=== PATIENT | male | born 1965 | race Two or more races ===

== ENCOUNTER 2023-11-23 18:08 | Emergency (ER) | payer OTHER ==
[~2023-11-23] VITALS: Ht 175.3 cm; Wt 72.6 kg
[2023-11-23 18:18] VITALS: TEMP 97.8
[2023-11-23] MEDS ORDERED: methylPREDNISolone SOD SUCC 125 MG/2ML VIAL ONE (19:29)
[2023-11-23] MEDS ORDERED: ALBUTEROL FS 2.5 MG/3 ML VIAL.NEB ONE (19:32)
[2023-11-23] MEDS ORDERED: IPRATROPIUM NEB FS 0.5 MG/2.5 ML AMPUL.NEB ONE (19:32)
[2023-11-23] MEDS: methylPREDNISolone SOD SUCC 125 MG/2ML VIAL IM ONE (19:35)
[2023-11-23 20:17] VITALS: O2SAT 97
[2023-11-23] MEDS: IPRATROPIUM NEB FS 0.5 MG/2.5 ML AMPUL.NEB NEB ONE (20:17)
[2023-11-23] MEDS: ALBUTEROL FS 2.5 MG/3 ML VIAL.NEB NEB ONE (20:17)
[2023-11-23 20:32] VITALS: O2SAT 100
[2023-11-23 21:42] VITALS: BP 118/82; O2SAT 100
== END 2023-11-23 21:44 | disposition left against medical advice (07) ==
LOC: ER 18:18
DX: R05.9 Cough, unspecified (principal); J45.909 Unspecified asthma, uncomplicated; Z98.890 Other specified postprocedural states; Z60.2 Problems related to living alone
CPT/HCPCS: 99285; 96372; 71045; 94640; J2930

== ENCOUNTER 2024-07-08 15:33 | Emergency (ER) | payer OTHER ==
[~2024-07-08] VITALS: Ht 180.3 cm; Wt 81.6 kg
[2024-07-08] MEDS: methylPREDNISolone SOD SUCC 125 MG/2ML VIAL IV ONE (17:00)
[2024-07-08] MEDS ORDERED: methylPREDNISolone SOD SUCC 125 MG/2ML VIAL ONE (17:13)
[2024-07-08 17:33] LABS: BASOPHILS % (AUTO) 0.3 % (0.0-2.0); EOSINOPHILS # (AUTO) 0.1 K/uL (0.0-0.7); EOSINOPHILS % (AUTO) 0.7 % (0.0-6.0); HEMATOCRIT 47 % (39-51); HEMOGLOBIN 15.9 g/dL (13.5-17.5); LYMPHOCYTES # (AUTO) 1.2 K/uL (0.8-4.8); LYMPHOCYTES % (AUTO) 12.3 % (20.0-44.0); MEAN CORPUSCULAR HEMOGLOBIN 32 PG (26.0-33.0); MEAN CORPUSCULAR HGB CONC 34 g/dl (31.0-36.0); MEAN CORPUSCULAR VOLUME 95 fL (80-96); MONOCYTES # (AUTO) 0.8 K/uL (0.1-1.30); MONOCYTES % (AUTO) 8.6 % (2.0-12.0); NEUTROPHILS # (AUTO) 7.4 K/uL (1.8-8.9); NEUTROPHILS % (AUTO) 78.1 % (43.0-81.0); PLATELET COUNT (AUTO) 220 K/uL (150-450); RED BLOOD CELL COUNT(AUTO) 4.95 MIL/uL (4.5-6.0); RED CELL DISTRIBUTION WIDTH 12.5 % (11.5-15.0); WHITE BLOOD COUNT (AUTO) 9.4 K/uL (4.3-11.0)
[2024-07-08] MEDS: ALBUTEROL FS 2.5 MG/3 ML VIAL.NEB NEB ONE (17:44)
[2024-07-08] MEDS: IPRATROPIUM NEB FS 0.5 MG/2.5 ML AMPUL.NEB NEB ONE (17:44)
[2024-07-08] MEDS ORDERED: ALBUTEROL FS 2.5 MG/0.5 ML VIAL.NEB ONE (17:46)
[2024-07-08] MEDS ORDERED: IPRATROPIUM NEB FS 0.5 MG/2.5 ML AMPUL.NEB ONE (17:46)
[2024-07-08 17:56] LABS: CALCIUM, SERUM 9.5 mg/dL (8.5-10.1); CARBON DIOXIDE 28 mmol/L (21-32); CHLORIDE 106 mmol/L (98-107); CREATININE 1.3 mg/dL (0.6-1.3); GLUCOSE 109 mg/dL (74-106); SODIUM SERUM 140 mmol/L (136-145); UREA NITROGEN, BLOOD 12 mg/dL (7-18)
[2024-07-08 18:03] LABS: ALANINE AMINOTRANSFERASE 31 U/L (12-78); ALBUMIN 3.7 g/dL (3.4-5.0); ALKALINE PHOSPHATASE 70 U/L (46-116); ASPARTATE AMINOTRANSFERASE 18 U/L (15-37); BILIRUBIN,DIRECT 0.2 mg/dL (0.0-0.2); BILIRUBIN,TOTAL 0.8 mg/dL (0.2-1.0); TOTAL PROTEIN, SERUM 7.9 g/dL (6.4-8.2)
[2024-07-08] MEDS ORDERED: PRED50TA PO (18:41)
[2024-07-08] MEDS ORDERED: PROM118S5 PO (18:41)
[2024-07-08 19:26] VITALS: BP 121/73; TEMP 98; O2SAT 98
[2024-07-10 08:37] LABS: ABG OXYGEN SATURATION 98.2 % (94.0-98.0); ABG PO2 107.7 mmHg (83.0-108.0); ABG TOTAL HEMOGLOBIN 16.7 G/dL (13.5-17.5); COHb 0.3 % (0.5-1.5); MetHb 0.3 % (0.0-1.5); O2Hb 97.6 % (94.0-97.0); PEEP,BG 12 cm H2O; SITE, ABG LEFT RADIAL; VT, ABG 400 mL
== END 2024-07-08 19:26 | disposition home or self-care (01) ==
LOC: ER 15:34
DX: J45.901 Unspecified asthma with (acute) exacerbation (principal); G25.0 Essential tremor; Z20.822 Contact with and (suspected) exposure to COVID-19; Z98.890 Other specified postprocedural states
CPT/HCPCS: 99285; 96374; 71045; 87426; 93005; 82803; 87804 ×2; 85025; 80048; 80076; 85378; 36415; 87420; 84484; 36600; 94640; J2919

== ENCOUNTER 2024-07-12 23:20 | Emergency (ER) | payer OTHER ==
[~2024-07-12] VITALS: Ht 180.3 cm; Wt 76.2 kg
[~2024-07-12 23:20] MED LIST: PRED50TA PO; PROM118S5 PO
[2024-07-12 23:27] VITALS: TEMP 97.9
[2024-07-12] MEDS: ALBUTEROL FS 2.5 MG/3 ML VIAL.NEB CONTNEB ONE (23:36)
[2024-07-12] MEDS ORDERED: ALBUTEROL FS 2.5 MG/3 ML VIAL.NEB ONE (23:41)
[2024-07-12 23:55] LABS: BASOPHILS % (AUTO) 0.1 % (0.0-2.0); EOSINOPHILS % (AUTO) 0.1 % (0.0-6.0); HEMATOCRIT 48 % (39-51); LYMPHOCYTES # (AUTO) 0.5 K/uL (0.8-4.8); LYMPHOCYTES % (AUTO) 4.2 % (20.0-44.0); MEAN CORPUSCULAR HEMOGLOBIN 32 PG (26.0-33.0); MEAN CORPUSCULAR HGB CONC 34 g/dl (31.0-36.0); MEAN CORPUSCULAR VOLUME 96 fL (80-96); MONOCYTES # (AUTO) 0.3 K/uL (0.1-1.30); MONOCYTES % (AUTO) 2.1 % (2.0-12.0); NEUTROPHILS # (AUTO) 11.5 K/uL (1.8-8.9); NEUTROPHILS % (AUTO) 93.5 % (43.0-81.0); PLATELET COUNT (AUTO) 242 K/uL (150-450); RED BLOOD CELL COUNT(AUTO) 4.95 MIL/uL (4.5-6.0); WHITE BLOOD COUNT (AUTO) 12.3 K/uL (4.3-11.0)
[2024-07-12] MEDS ORDERED: methylPREDNISolone SOD SUCC 125 MG/2ML VIAL ONE (23:56)
[2024-07-12] MEDS ORDERED: Magnesium 1GM/D5W 100ML PREMIX 100 ML IV ONE (23:56)
[2024-07-13 00:06] LABS: CALCIUM, SERUM 9.2 mg/dL (8.5-10.1); CREATININE 1.3 mg/dL (0.6-1.3); POTASSIUM 4.3 mmol/L (3.5-5.1)
[2024-07-13] MEDS: Magnesium 1GM/D5W 100ML PREMIX 100 ML IV SCH (00:07)
[2024-07-13 00:08] VITALS: O2SAT 100
[2024-07-13] MEDS: methylPREDNISolone SOD SUCC 125 MG/2ML VIAL IV ONE (00:08)
[2024-07-13 00:17] LABS: ABG BASE EXCESS -1.1 mmol/L (-2.0-3.0); ABG OXYGEN SATURATION 97.3 % (94.0-98.0); ABG PCO2 24.6 mmHg (35.0-48.0); ABG PO2 81.1 mmHg (83.0-108.0); ABG TOTAL HEMOGLOBIN 16.5 G/dL (13.5-17.5); COHb 0.2 % (0.5-1.5); MetHb 0.4 % (0.0-1.5); O2Hb 96.7 % (94.0-97.0)
[2024-07-13 00:18] LABS: ALBUMIN 3.5 g/dL (3.4-5.0); BILIRUBIN,TOTAL 2.2 mg/dL (0.2-1.0); TOTAL PROTEIN, SERUM 7.4 g/dL (6.4-8.2)
[2024-07-13] MEDS ORDERED: PRED50TA PO (00:24)
[2024-07-13 01:08] VITALS: O2SAT 100
[2024-07-13 01:25] VITALS: BP 146/92; O2SAT 100
== END 2024-07-13 02:08 | disposition left against medical advice (07) ==
LOC: ER 23:21
DX: J45.901 Unspecified asthma with (acute) exacerbation (principal); R06.02 Shortness of breath; Z79.52 Long term (current) use of systemic steroids; Z60.2 Problems related to living alone; Z20.822 Contact with and (suspected) exposure to COVID-19
CPT/HCPCS: 99285; 71045; 87426; 93005; 85025; 36415; 80053; 84484; 83880; 96365; 96375; 82803; 36600; 94644; J2919; J3475

== ENCOUNTER → 2024-08-06 | Emergency (ER) | payer OTHER ==
[~2024-08-06] VITALS: Ht 180.3 cm; Wt 83.5 kg
[~2024-08-06] MED LIST changes: +ACET-2030 PO; +ALBU2.5V38 INH; +ALBUTEROL FS 2.5 MG/3 ML VIAL.NEB ONE; +ASPI-992 PO; +BUDE10.2 IH; +CT SWABBABLE VALVE TRANS SET 1 EA INFUS.SET MC ONE; +IOHEXOL-350 100 ML VIAL IV ONE; +IPRATROPIUM NEB FS 0.5 MG/2.5 ML AMPUL.NEB ONE; +IV NS 0.9% 250 ML IV ONE; +MONT10TA22 PO; +PRED10TA PO; +PRIM50TA27 PO; +PROP10TA68 PO; +TOPI25TA49 PO; +methylPREDNISolone SOD SUCC 125 MG/2ML VIAL ONE
[2024-08-06 17:14] LABS: BASOPHILS % (AUTO) 0.3 % (0.0-2.0); EOSINOPHILS % (AUTO) 0.4 % (0.0-6.0); HEMATOCRIT 48 % (39-51); HEMOGLOBIN 16.2 g/dL (13.5-17.5); LYMPHOCYTES # (AUTO) 0.4 K/uL (0.8-4.8); LYMPHOCYTES % (AUTO) 4.2 % (20.0-44.0); MEAN CORPUSCULAR HEMOGLOBIN 33 PG (26.0-33.0); MEAN CORPUSCULAR HGB CONC 34 g/dl (31.0-36.0); MEAN CORPUSCULAR VOLUME 96 fL (80-96); MONOCYTES # (AUTO) 0.2 K/uL (0.1-1.30); MONOCYTES % (AUTO) 2.1 % (2.0-12.0); NEUTROPHILS # (AUTO) 9.3 K/uL (1.8-8.9); PLATELET COUNT (AUTO) 177 K/uL (150-450); RED BLOOD CELL COUNT(AUTO) 4.97 MIL/uL (4.5-6.0); RED CELL DISTRIBUTION WIDTH 13.1 % (11.5-15.0)
[2024-08-06 17:22] LABS: CALCIUM, SERUM 9.3 mg/dL (8.5-10.1); CARBON DIOXIDE 25 mmol/L (21-32); CHLORIDE 104 mmol/L (98-107); CREATININE 1.3 mg/dL (0.6-1.3); GLUCOSE 117 mg/dL (74-106); POTASSIUM 4.5 mmol/L (3.5-5.1); SODIUM SERUM 137 mmol/L (136-145); UREA NITROGEN, BLOOD 17 mg/dL (7-18)
[2024-08-06 17:35] LABS: NT-PRO BNP 324 pg/mL (0-125)
[2024-08-06 17:43] LABS: MAGNESIUM 2.4 mg/dL (1.8-2.4); PHOSPHORUS 2.9 mg/dL (2.5-4.9)
[2024-08-06] MEDS: methylPREDNISolone SOD SUCC 125 MG/2ML VIAL IV ONE (18:09)
[2024-08-06] MEDS: Magnesium 1GM/D5W 100ML PREMIX 100 ML IV SCH (18:09)
[2024-08-06 19:10] VITALS: O2SAT 99
[2024-08-06] MEDS: IPRATROPIUM NEB FS 0.5 MG/2.5 ML AMPUL.NEB NEB ONE (19:10)
[2024-08-06] MEDS: ALBUTEROL FS 2.5 MG/3 ML VIAL.NEB NEB ONE (19:10)
[2024-08-06 20:11] VITALS: O2SAT 99
[2024-08-06 21:35] VITALS: BP 110/62; TEMP 98.1; O2SAT 99
== END ==
LOC: ER 16:15
DX: J45.901 Unspecified asthma with (acute) exacerbation (principal); R00.8 Other abnormalities of heart beat; R06.02 Shortness of breath; R05.9 Cough, unspecified; Z79.51 Long term (current) use of inhaled steroids; Z79.899 Other long term (current) drug therapy; Z60.2 Problems related to living alone
CPT/HCPCS: 99285; 96365; 71275; 71045; 96375; 93005 ×3; 85025; 80048; 83735; 84100; 36415; 84484 ×2; 83880; 94644; J2919; J7050; J3475; Q9967

== ENCOUNTER 2024-08-31 13:25 | Emergency (ER) | payer OTHER ==
[~2024-08-31] VITALS: Ht 180.3 cm; Wt 83.5 kg
[~2024-08-31 13:25] MED LIST changes: -ALBUTEROL FS 2.5 MG/3 ML VIAL.NEB ONE; -ASPI-992 PO; -CT SWABBABLE VALVE TRANS SET 1 EA INFUS.SET MC ONE; -IOHEXOL-350 100 ML VIAL IV ONE; -IPRATROPIUM NEB FS 0.5 MG/2.5 ML AMPUL.NEB ONE; -IV NS 0.9% 250 ML IV ONE; -PRED50TA PO; -PROM118S5 PO; -methylPREDNISolone SOD SUCC 125 MG/2ML VIAL ONE
[2024-08-31 14:23] LABS: BASOPHILS % (AUTO) 0.2 % (0.0-2.0); EOSINOPHILS # (AUTO) 0.1 K/uL (0.0-0.7); EOSINOPHILS % (AUTO) 1.2 % (0.0-6.0); HEMATOCRIT 44 % (39-51); HEMOGLOBIN 15.3 g/dL (13.5-17.5); LYMPHOCYTES % (AUTO) 9.5 % (20.0-44.0); MEAN CORPUSCULAR HEMOGLOBIN 33 PG (26.0-33.0); MEAN CORPUSCULAR HGB CONC 35 g/dl (31.0-36.0); MEAN CORPUSCULAR VOLUME 95 fL (80-96); MONOCYTES # (AUTO) 0.7 K/uL (0.1-1.30); NEUTROPHILS # (AUTO) 8.3 K/uL (1.8-8.9); NEUTROPHILS % (AUTO) 82.1 % (43.0-81.0); PLATELET COUNT (AUTO) 182 K/uL (150-450); RED BLOOD CELL COUNT(AUTO) 4.65 MIL/uL (4.5-6.0); RED CELL DISTRIBUTION WIDTH 13.4 % (11.5-15.0); WHITE BLOOD COUNT (AUTO) 10.1 K/uL (4.3-11.0)
[2024-08-31 14:36] LABS: CALCIUM, SERUM 9.5 mg/dL (8.5-10.1); CARBON DIOXIDE 29 mmol/L (21-32); CHLORIDE 107 mmol/L (98-107); CREATININE 1.2 mg/dL (0.6-1.3); GLUCOSE 98 mg/dL (74-106); POTASSIUM 3.9 mmol/L (3.5-5.1); SODIUM SERUM 142 mmol/L (136-145); UREA NITROGEN, BLOOD 12 mg/dL (7-18)
[2024-08-31] MEDS ORDERED: ASPI-992 PO (15:27)
[2024-08-31 18:27] VITALS: BP 132/79; TEMP 98.3; O2SAT 98
== END 2024-08-31 18:27 | disposition home or self-care (01) ==
LOC: ER 13:35
DX: R00.2 Palpitations (principal); R07.9 Chest pain, unspecified; J45.909 Unspecified asthma, uncomplicated; R06.02 Shortness of breath; Z79.51 Long term (current) use of inhaled steroids; Z79.899 Other long term (current) drug therapy; Z79.52 Long term (current) use of systemic steroids; Z60.2 Problems related to living alone
CPT/HCPCS: 36415; 71045-TC; 80048-TC; 83880; 84484-TC; 85025-TC; 85378-TC